=== PATIENT | male | born 1985 | race Caucasian/White ===

== ENCOUNTER 2018-04-27 22:15 | Emergency (ER) | payer SELFPAY ==
[~2018-04-27] VITALS: Ht 190.5 cm; Wt 81.6 kg
[2018-04-27 22:15] VITALS: BP 119/73
[2018-04-27] MEDS ORDERED: NALOXONE PREFILLED SYRINGE 2 MG/2 ML SYRINGE ONE (23:23)
== END 2018-04-27 23:59 | disposition home or self-care (01) ==
LOC: ER 22:15
DX: R51 Headache (principal); Z60.2 Problems related to living alone; F10.10 Alcohol abuse, uncomplicated; Y90.9 Presence of alcohol in blood, level not specified
CPT/HCPCS: 99282; A4606; Z7610; J2310